=== PATIENT | female | born 1990 | race Caucasian/White ===

== ENCOUNTER 2021-07-07 22:23 | Emergency (ER) | payer MEDICAID, OTHER ==
[~2021-07-07] VITALS: Ht 167.6 cm; Wt 127.8 kg
[~2021-07-07 22:23] MED LIST: NITR100C6 PO
--- NOTE | 2021-07-07 22:40 | NUR ---
THIS IS A 30F BIB EMS FROM HOME. PER REPORT PT HAD BEEN DRINKING EARLIER IN THE NIGHT AND HAD AN ANXIETY ATTACK AND BECAME UNRESPONSIVE WITH BOYFRIEND. UPON ARRIVAL PT VSS, NODS TO RN QUESTIONS AND FOLLOWS COMMANDS WITH EYES CLOSED. ERP TO BEDSIDE FOR EVAL, PT COOPERATIVE AND INTERACTING WITH STAFF.
--- NOTE | 2021-07-07 22:43 | NUR ---
LAB AT BEDSIDE
[2021-07-07 23:01] LABS: BASOPHILS % (AUTO) 0 % (0-1); EOSINOPHILS % (AUTO) 3 % (1-7); LYMPHOCYTES % (AUTO) 41 % (22-44); MEAN CORPUSCULAR HEMOGLOBIN 33.2 pg (27.0-34.8); MEAN CORPUSCULAR HGB CONC 34.3 g/dL (32.4-35.8); MEAN PLATELET VOLUME 7.2 fL (7.4-10.4); MONOCYTES % (AUTO) 6 % (2-9); NEUTROPHILS % (AUTO) 50 % (42-75); PLATELET COUNT 255 x10^3/uL (130-400); RED BLOOD COUNT 4.55 x10^6/uL (3.82-5.3); RED CELL DISTRIBUTION WIDTH 13.4 % (9.6-15.2)
[2021-07-07 23:11] LABS: ALBUMIN 3.5 g/dL (3.4-5.0); ANION GAP 9 mmol/L (5-15); CALCIUM 9.1 mg/dL (8.5-10.1); CHLORIDE 110 mmol/L (98-107); CREATININE 0.74 mg/dL (0.55-1.02)
[2021-07-07 23:20] LABS: SALICYLATE LEVEL < 1.7 mg/dL (2.8-20.0)
--- NOTE | 2021-07-07 23:59 | NUR ---
boyfriendorian at bedside for support
[2021-07-08] VITALS: BP 134/85
--- NOTE | 2021-07-08 00:01 | NUR ---
pt and boyfriend sleeping on gurney resp even and unlabored vss
--- NOTE | 2021-07-08 02:30 | NUR ---
PT AMB TO RESTROOM STEADY GAIT BOYFRIEND AT BEDSIDE STS WILL DRIVE PT HOME
--- NOTE | 2021-07-08 02:32 | NUR ---
Patient/Caregiver given discharge instructions and they have confirmed that they understand the instructions. Patient ambulatory with steady gait.
== END 2021-07-08 02:33 | disposition home or self-care (01) ==
LOC: ED 22:35
DX: F10.120 Alcohol abuse with intoxication, uncomplicated (principal); F41.1 Generalized anxiety disorder; R42 Dizziness and giddiness; E66.9 Obesity, unspecified; Z68.42 Body mass index [BMI] 45.0-49.9, adult; Y90.0 Blood alcohol level of less than 20 mg/100 ml
CPT/HCPCS: 36415; 80048; 80299; 80320; 80329; 82040; 84703; 85025; 99283; G0480